=== PATIENT | female | born 1995 | race Caucasian/White ===

== ENCOUNTER → 2017-08-31 | Day surgery (SDC) | payer OTHER ==
--- NOTE | 2017-08-30 07:57 | MH ---
cc: ROSEANNNOEMÍ DATE OF ADMISSION 08/31/2017 DATE OF 1995 INDICATION This is a 21-year-old female with chronic recurrent tonsillitis. Adrianna has had multiple infections that have not responded to medical therapy. In addition, she has evidence of a left maxillary isolated sinusitis, but has nasal obstruction with turbinate hypertrophy bilaterally. She has failed medical therapy with multiple rounds of antibiotics and topical therapy here. She is to undergo left maxillary sinusotomy, tonsillectomy and bilateral submucosal resection of the inferior turbinates. ALLERGIES No known drug allergies. CURRENT MEDICATIONS 1. Augmentin 2. Carafate 3. Omeprazole PAST MEDICAL HISTORY Significant for acid reflux. PHYSICAL EXAMINATION A well-developed thin female in no apparent distress. HEAD, EYES, EARS, NOSE, AND THROAT: Normocephalic, atraumatic. Extraocular motions intact. External ear canals clear. Lips, oral mucosa and oropharynx shows no lesion. Tonsils have 3+ erythema with debris. The neck shows no masses. Nasal exam shows turbinate hypertrophy. CHEST: The chest is clear to auscultation. HEART: Regular rate. ABDOMEN: Soft. EXTREMITIES: No lesion. NEUROLOGIC: Exam is nonfocal. ASSESSMENT This is a 21-year-old female with chronic sinusitis, nasal obstruction, turbinate hypertrophy, chronic tonsillitis, recurrent tonsillitis. PLAN She is to undergo tonsillectomy, left maxillary sinusotomy, bilateral submucosal resection of the inferior turbinates. The risks and benefits discussed with the patient. The risks include, but are not limited to those of anesthesia, bleeding, unfavorable scarring, velopharyngeal insufficiency, dehydration, depression, abscess, voice change bleeding, CSF leak, meningitis, brain abscess, double vision, vision loss, blindness anosmia, septal perforation, epistaxis. The patient states she understands and accepts the risks of the procedures. MD LESLIE Paulino/RONNA /7:38 AM 7:49 AM
[~2017-08-31] VITALS: Ht 162.6 cm; Wt 61.3 kg
[~2017-08-31] MED LIST: *morphine SULFATE 8 MG/ML PERIprocedure ONLY ONE; ACETAMINOPHEN 1000 MG/100 ML 100 ML IV ONE; CARA1TAB6 PO; CHLORHEXIDINE GLUCONATE 2 % 1 PACK (2 CLOTHS) TOPICAL PRN; DEXAMETHASONE SOD PHOS 4 MG/ML VIAL IV ONE; DO NOT ADM ANY ANTICOAGULANT DRUGS PRN; EPINEPHrine HCL (1:1000) 30 MG/30 ML VIAL ONE; GLYCOPYRROLATE 1 MG/5 ML SYRINGE IV PUSH ONE; INSULIN HUMAN REGULAR 1,000 UNITS/10 ML VIAL SQ PRN; LACTATED RINGER'S 1000 ML IV PRN; LIDOCAINE 1%/EPINEPHrine 1:100,000 SOLN 50 ML VIAL ONE; LIDOCAINE HCL 1% PF 5 ML AMPULE OTHER ONE; METOPROLOL TARTRATE 25 MG TAB PO PRN; NEOSTIGMINE 3 MG/3 ML SYR IV ONE; OMEP40CA2 PO; ONDANSETRON HCL 4 MG/2 ML VIAL IV PUSH ONE; POVIDONE IODINE 5% (ANTISEPSIS KIT) 4 APPLICATIONS EACH NARE PRN; PROPOFOL 200 MG/20 ML AMP IV ONE; ROCURONIUM INJ 50 MG/5 ML SYRINGE IV PUSH ONE; SODIUM CHLORID 0.9% 500 ML IV PRN; SUGAMMADEX SODIUM 200 MG/2 ML VIAL IV PUSH ONE; ceFAZolin 1,000 MG/NS 100 ML IV SCH; ceFAZolin INJ 1,000 MG VIAL ONE
[2017-08-31 09:51] LABS: AUTOMATED NEUTROPHIL # 3.2 TH/MM3 (1.8-7.7); BASOPHIL % 0.7 % (0.0-2.0); EOSINOPHIL # 0.2 TH/MM3 (0-0.4); EOSINOPHIL % 2.7 % (0.0-4.0); HEMATOCRIT 38.5 % (35.0-46.0); HEMO FLAGS DIFF FINAL; LYMPH % 34.2 % (9.0-44.0); LYMPHOCYTE # 2.1 TH/MM3 (1.0-4.8); MEAN CELL VOLUME 88.2 FL (80.0-100.0); MEAN CORPUSCULAR HEMOGLOBIN 30.4 PG (27.0-34.0); MEAN CORPUSCULAR HGB CONC 34.5 % (32.0-36.0); MONO % 11.2 % (0.0-8.0); NEUT % 51.2 % (16.0-70.0); PLATELET COUNT 193 TH/MM3 (150-450); RED BLOOD COUNT 4.37 MIL/MM3 (4.00-5.30); RED CELL DISTRIBUTION WIDTH 11.9 % (11.6-17.2); WHITE BLOOD COUNT 6.2 TH/MM3 (4.0-11.0)
--- NOTE | 2017-08-31 14:33 | MP ---
cc: NOEMÍ WHITFIELD M.D. DATE OF SURGERY: 08/31/2017 1995 INDICATIONS 21-year-old female with chronic sinusitis. Adrianna has chronic maxillary disease and bilateral turbinate hypertrophy with nasal obstruction. She has also had chronic tonsillitis and multiple tonsil infections that have not responded to medical therapy. Plan is for left maxillary sinusotomy, bilateral submucosal resection of the inferior turbinates and tonsillectomy. PREOPERATIVE DIAGNOSIS Chronic sinusitis, nasal obstruction, turbinate hypertrophy, chronic tonsillitis. POSTOPERATIVE DIAGNOSIS Chronic sinusitis, nasal obstruction, turbinate hypertrophy, chronic tonsillitis. PROCEDURE Left maxillary sinusotomy, bilateral submucosal resection inferior turbinates and tonsillectomy. SUMMARY The patient was brought to the operating room and placed in supine position, successfully placed under general anesthesia and prepared in the usual fashion for this procedure. The nose was first topically decongested and then infiltrated in the lateral orr with Xylocaine with epinephrine 1:100,000. Attention was turned to the right side. The right inferior turbinate was incised inferiorly and under endoscopic guidance a submucous resection was completed, mucosa preserved, bony areas preserved, the area is cauterized and closed. In a similar fashion on the left side the nose was examined. A submucous resection of the inferior turbinate was completed under endoscopic guidance, soft tissue was removed and mucosa and bony areas were preserved. The uncinate process was next identified on the left side and this was retroflexed anteriorly, then the natural ostia of the maxillary sinus was identified and then under endoscopic guidance it was instrumented and dilated completing endoscopic maxillary sinusotomy. The patient was then turned for tonsillectomy. The oral cavity was exposed with retractors, no submucous cleft. The right tonsil was removed with coblation technique from superior to inferior. The left tonsil was removed in similar fashion. Both tonsil beds were inspected for hemostasis which was obtained by suction cautery. Retractor was removed. The patient was examined and suctioned. She showed no bleeding. She was awakened, extubated and taken to recovery in stable condition. MD LESLIE Paulino/CLYDE /2:00 PM /2:11 PM
[2017-08-31 14:51] VITALS: BP 128/80; PULSE 77; RESP 18; TEMP 98.1; O2SAT 99
== END | disposition home or self-care (01) ==
LOC: HSDC 08:05
PROVIDERS: ATTEND Specialist
DX: J34.3 Hypertrophy of nasal turbinates (principal); J03.91 Acute recurrent tonsillitis, unspecified; J32.0 Chronic maxillary sinusitis
CPT/HCPCS: 00160; 30140; 31256; 42826; 85025; 88304; J0131; J0171; J0690; J1100; J2270; J2405; J2710; J3010